=== PATIENT | male | born 1985 | race Caucasian/White ===

== ENCOUNTER 2017-05-04 14:46 | Emergency (ER) | payer BC, MEDICAID ==
[2017-05-04 15:09] VITALS: BP 139/82
--- NOTE | 2017-05-04 15:27 | ED ---
Ciro De La Torre Tecjoon, scribed for Norman Ackerman MD on 05/04/17 at 1518 . Substance Abuse/Use - HPI Summary HPI Summary: This patient is a 32 year old male BIBA to [facility] with concerns of possible heroin overdose. Patient was found not breathing on scene and was given CPR and narcan, after which he regained consciousness. Symptoms aggravated by nothing. Symptoms alleviated by nothing. Patient states that he is feeling fine now and wishes to go home. - History Of Current Complaint Chief Complaint: EDOverdose Stated Complaint: OVERDOSE Time Seen by Provider: 05/04/17 15:07 Hx Obtained From: Patient, EMS Onset/Duration of Drug/ETOH Abuse: Minutes Ingestion History: Type/Name Of Drug - Heroin Overdose Characteristics: Other - nasal inhalation Severity Initially: Severe Severity Currently: Mild Character: Frustrated Aggravating Factor(s): Nothing Alleviating Factor(s): Nothing - Allergies/Home Medications Allergies/Adverse Reactions: Allergies Allergy/AdvReac Type Severity Reaction Status Date / Time No Known Allergies Allergy Verified 08/13/14 18:22 PMH/Surg Hx/FS Hx/Imm Hx Previously Healthy: Yes Opthamlomology History: Denies: Hx Legally Blind EENT History: Denies: Hx Deafness Infectious Disease History: No Infectious Disease History: Denies: Traveled Outside the [place] in Last 30 Days - Family History Known Family History: Positive: Hypertension - Social History Alcohol Use: None Hx Substance Use: Yes Substance Use Type: Reports: Heroin Substance Use Comment - Amount & Last Used: 6 MONTHS Hx Tobacco Use: Yes Smoking Status (MU): Current Every Day Smoker Type: Cigarettes Review of Systems Negative: Fever Negative: Weakness Negative: Anxious All Other Systems Reviewed And Are Negative: Yes Physical Exam - Summary Physical Exam Summary: General: well-appearing, no pain distress Skin: warm, color reflects adequate perfusion, dry Head: normal Eyes: EOMI, HARPER. Pupils are 3mm and reactive ENT: normal. Nasal trumpet in right narys, which was removed in ED. Neck: supple, nontender Respiratory: CTA, breath sounds present Cardiovascular: RRR Abdomen: soft, nontender Bowel: present Musculoskeletal: normal, strength/ROM intact Neurological: normal, sensory/motor intact, A&O x3 Psychological: affect/mood appropriate Triage Information Reviewed: Yes Vital Signs On Initial Exam: Initial Vitals Temp Pulse Resp BP Pulse Ox 98.4 F 78 18 139/82 99 05/04/17 14:59 05/04/17 14:59 05/04/17 14:59 05/04/17 14:59 05/04/17 14:59 Vital Signs Reviewed: Yes Diagnostics - Vital Signs Vital Signs Temp Pulse Resp BP Pulse Ox 05/04/17 14:59 98.4 F 78 18 139/82 99 - Laboratory Lab Statement: Any lab studies that have been ordered have been reviewed, and results considered in the medical decision making process. Course/Dx - Course Course Of Treatment: This patient is a 32 year old male BIBA to [facility] with concerns of possible heroin overdose. Patient was found not breathing on scene and was given CPR and narcan, after which he regained consciousness. Symptoms aggravated by nothing. Symptoms alleviated by nothing. Patient states that he is feeling fine now and wishes to go home. Medications reviewed. PATIENT AWAKE AND ALERT IN THE EMERGENCY DEPARTMENT. HE WANTS TO LEAVE AND DECLINES FURTHER EVALUATION AND TREATMENT. I DISCUSSED THE DURATION OF NARCAN AND TO BE AWARE OF IT'S EFFECTS WEARING OFF. NO CRITICAL CARE TIME. - Diagnoses Provider Diagnoses: Accidental heroin overdose Discharge - Discharge Plan Condition: Fair Disposition: HOME Patient Education Materials: Narcotic Abuse (ED) Referrals: [facility] [Outside] [facility] [place] [facility] [Outside] [facility] [Outside] No Primary Care Phys,[facility] [Primary Care Provider] - Additional Instructions: FOLLOW UP WITH YOUR DOCTOR. RETURN TO THE EMERGENCY DEPARTMENT FOR ANY WORSENING OF YOUR CONDITION OR QUESTIONS OR CONCERNS. The documentation as recorded by the Ciro gaxiola Tecjoon accurately reflects the service I personally performed and the decisions made by me, Norman Ackerman MD.
== END 2017-05-04 15:30 | disposition home or self-care (01) ==
LOC: ED 14:46
DX: T40.1X1A Poisoning by heroin, accidental (unintentional), initial encounter (principal); Y92.9 Unspecified place or not applicable; F17.210 Nicotine dependence, cigarettes, uncomplicated
CPT/HCPCS: 99282